=== PATIENT | female | born 1980 | race American Indian/Alaskan Native ===

== ENCOUNTER 2017-03-01 11:53 | Emergency (ER) | payer SELFPAY ==
[2017-03-01 11:54] VITALS: BMI 36.5
[2017-03-01 12:02] VITALS: BP 107/73; PULSE 62; RESP 17; TEMP 98.3; O2SAT 99
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
--- NOTE | 2017-03-01 16:49 | RAD ---
PROCEDURE: Right ankle dated 03/01/2017 HISTORY: pain and swelling s.p injury COMPARISON: None FINDINGS: BONES: There is a minimally displaced diagonal and questionably comminuted fracture traversing the distal fibula with moderate to fairly significant overlying soft tissue swelling . Ankle mortise maintained. No other fractures seen. JOINTS: Normal. No osteoarthritis. Ankle mortise maintained. Talar dome intact SOFT TISSUES: As above OTHER FINDINGS: None. IMPRESSION: Minimally displaced questionably comminuted fracture distal fibula with moderate to fairly significant overlying soft tissue swelling
== END 2017-03-01 13:19 | disposition home or self-care (01) ==
LOC: C.ER 11:53
DX: S82.891A Other fracture of right lower leg, initial encounter for closed fracture (principal); X50.0XXA Overexertion from strenuous movement or load, initial encounter; Y93.89 Activity, other specified; Y92.89 Other specified places as the place of occurrence of the external cause

== ENCOUNTER 2017-05-27 09:27 | Observation (INO) | payer SELFPAY ==
[2017-05-27 09:27] VITALS: BMI 36.5
--- NOTE | 2017-05-27 09:58 | C.PDOC ---
History Of Present Illness 37 year old female presents to the ED with complaints of worsening pain and swelling to right side of face for five days. Patient states she is missing a filling to top right first molar for three years. She has had intermittent pain , now pain is more severe than usual. Patient has not had a prior dental evaluation for the same complaints and notes no relief with over the counter pain medications. She denies fever or other associated symptoms WORSENING PAIN, SWELLING R FACE X 5 DAYS. PS MISSING FILLING TOP R 1ST MOLAR X 3 YEARS, HAS BEEN W INTERMIT PAIN. NOW MORE SEVERE THAN USUAL. NO FEVER. NO RELIEF W OTC PAIN RX. NO PRIOR DENTAL EVAL FOR SAME EXAM MILD DIST NONTOXIC HEENT +R UPPER AND LOWER FACIAL SWELL. +DENTALGIA R UPPER 1 MOLAR W MISSING FILLING SPACE. +LOCAL GUM SWELL NO ABSCESS. NO ERYTHEMA. NO DROOLING, SPEAKING FULL SENTENCES REMAINDER NEG Time Seen by Provider: 05/27/17 09:48 Chief Complaint (Nursing): Dental Pain History Per: Patient History/Exam Limitations: no limitations Onset/Duration Of Symptoms: Days (5 days ), Intermittent Episodes Current Symptoms Are (Timing): Still Present Quality: Positive for: "Pain" Recent travel outside of the [place]: No Past Medical History Reviewed: Historical Data, Nursing Documentation, Vital Signs Vital Signs: Last Vital Signs Temp 98.0 F 05/27/17 10:49 Pulse 88 05/27/17 10:49 Resp 18 05/27/17 10:49 BP 102/67 05/27/17 10:49 Pulse Ox 98 05/27/17 13:15 - Medical History PMH: Anemia, Anxiety, Depression, Post Traumatic Stress Disorder Surgical History: Cholecystectomy - [facility] Procedures [employer]IF RUPT [employer]ES NEC (03/20/13) MANUAL ASSIST DELIV NEC (03/20/13) MEDICAL INDUCTION LABOR (03/20/13) Family History: States: Unknown Family Hx - Social History Hx Alcohol Use: Yes Hx Substance Use: No - Immunization History Hx Tetanus Toxoid Vaccination: Yes Hx Influenza Vaccination: No Hx Pneumococcal Vaccination: No Review Of Systems Constitutional: Negative for: Fever, Chills ENT: Positive for: Other (pain and swelling to right side of face ) Cardiovascular: Negative for: Chest Pain, Palpitations Respiratory: Negative for: Cough, Shortness of Breath Gastrointestinal: Negative for: Nausea, Vomiting Physical Exam - Physical Exam Appears: Non-toxic, In Acute Distress (mild distress ) Skin: Warm, Dry Head: Other (right upper and lower facial swelling ) Eye(s): bilateral: Normal Inspection, PERRL, EOMI Ear(s): Bilateral: Normal Nose: Normal, No Discharge Oral Mucosa: Moist Tongue: Normal Appearing, No Swelling Lips: Normal Appearing, No Swelling Teeth: Other (dentalgia right upper, one molar with missing filling space ) Gingiva: Swelling (localized gum swelling with no abscess or erythema. ) Throat: Normal, No Erythema, No Exudate, No Drooling Chest: Symmetrical, No Deformity Cardiovascular: Rhythm Regular, No Murmur Respiratory: Normal Breath Sounds, No Rales, No Rhonchi, No Wheezing, Other ( Patient speaking in full sentences ) Neurological/Psych: Oriented x3, Normal Speech, Normal Cognition, Normal Motor, Normal Sensation ED Course And Treatment - Laboratory Results Result Diagrams: 05/27/17 10:24 05/27/17 11:04 O2 Sat by Pulse Oximetry: 98 (room air ) - CT Scan/US CT ORBITS WITH CONTRAST. Other Rad Studies (CT/US): Interpreted By Me, Read By Radiologist CT/US Interpretation: FINDINGS: RIGHT ORBIT: RIGHT BONY ORBIT: Normal. RIGHT INTRAORBITAL STRUCTURES: Globe: Normal. Extraocular muscles: Normal. Post septal space: Normal. Optic Nerve: Normal. Lacrimal Apparatus: Normal. RIGHT PRESEPTAL SOFT TISSUES: Mild right periorbital soft tissue swelling. LEFT ORBIT: LEFT BONY ORBIT: Normal. LEFT INTRAORBITAL STRUCTURES: Globe: Normal. Extraocular muscles: Normal. Post septal space: Normal. Optic Nerve: Normal. Lacrimal Apparatus: Normal. LEFT PRESEPTAL SOFT TISSUES: Normal. OTHER: There is enhancing wall fluid collection adjacent to the right maxilla suspicious for abscess formation measures 11.3 x 20.7 millimeter image 64 series 3. The adjacent tooth demonstrate periodontal lucency may represent periodontal abscess. Mild mucosal thickening seen at the right maxillary sinus. IMPRESSION: 2 x 1.7 centimeter abscess formation seen lateral to the right maxillary bone. Adjacent tooth surrounding with lucency also suspicious for abscess. Moderate right facial soft tissue swelling extending to the right periorbital region. Otherwise no acute pathology in the maxillofacial and orbits seen. Progress Note: Orbits/facial CT with contrast was ordered. Patient was given Toradol, morphine, cefTRIAXone IVPB, and IV fluids. Progress - Data Reviewed Data Reviewed: Lab, Diagnostic imaging, EKG, Old records ED OBSERVATION Discharge: Yes Date of observation admission: 05/27/17 Time of observation admission: 09:45 - Observation admission statement Patient is being placed in observation because:: FACIAL SWELL, DENTAL PAIN - Goals of Observation Goals of observation are:: RO ABSCESS - Progress Note Progress Note: 05/27/17 13:[address] RESULTS D/W PT, AGREES W TRANSFER D/W [facility], [place] [facility] [place] 13:28 D/W [place] [facility] [place] [facility] AWARE OF ER FINDINGS, STATES PT DOESNT REQUIRE ER TRANSFER AND CAN BE FU IN CLINIC. PT AGREES W DC PLAN Disposition Counseled Patient/Family Regarding: Studies Performed, Diagnosis, Need For Followup, Rx Given - Disposition Disposition: HOME/ ROUTINE Disposition Time: 13:28 Condition: IMPROVED - POA Present On Arrival: None - Clinical Impression Clinical Impression: Cellulitis and abscess of face - Scribe Statement The provider has reviewed the documentation as recorded by the Mauibnuha Lott All medical record entries made by the Pato were at my direction and personally dictated by me. I have reviewed the chart and agree that the record accurately reflects my personal performance of the history, physical exam, medical decision making, and the department course for this patient. I have also personally directed, reviewed, and agree with the discharge instructions and disposition.
[2017-05-27] MEDS ORDERED: cefTRIAXone IV 1 gm in Dextros 50 ML IV STA (10:00)
[2017-05-27] MEDS ORDERED: Sodium Chloride 0.9% 1,000 ML IV ONE (10:00)
[2017-05-27 10:20] LABS: VENOUS BLOOD GAS BASE EXCESS 0.6 mmol/L (0.0-2.0); VENOUS BLOOD GAS PCO2 47 mmHg (40-60); VENOUS BLOOD PH 7.36 (7.32-7.43)
[2017-05-27 10:30] LABS: BASO # 0.1 K/uL (0.0-0.2); BASO % 0.6 % (0.0-2.0); EOS # 0.1 K/uL (0.0-0.7); HEMATOCRIT 39.5 % (34.0-47.0); LYMPH # 1.1 K/uL (1.0-4.3); MEAN CELL VOLUME 94.5 fL (81.0-99.0); MEAN CORPUSCULAR HEMOGLOBIN 32.4 pg (27.0-31.0); MEAN CORPUSCULAR HGB CONC 34.3 g/dL (33.0-37.0); MEAN PLATELET VOLUME 8.6 fL (7.2-11.7); MONO # 0.7 K/uL (0.0-0.8); MONO % 7.9 % (0.0-10.0); NRBC % 0.1 % (0.0-2.0); RED CELL DISTRIBUTION WIDTH 13.3 % (11.5-14.5); WHITE BLOOD COUNT 8.7 K/uL (4.8-10.8)
[2017-05-27] MEDS ORDERED: Sodium Chloride 0.9% 1,000 ML ONE (10:31)
[2017-05-27] MEDS ORDERED: cefTRIAXone IV 1 gm in Dextros 50 ML IVPB ONE (10:35)
[2017-05-27 10:50] VITALS: RESP 18
[2017-05-27 11:19] LABS: BLOOD UREA NITROGEN 11 mg/dL (7-17); CARBON DIOXIDE 26 mmol/L (22-30); CHLORIDE 103 mmol/L (98-107); GFR AFRICAN-AMERICAN > 60; GLUCOSE,RANDOM 80 mg/dL (65-105); POTASSIUM 4.3 mmol/L (3.6-5.2); SODIUM 140 mmol/L (132-148)
[2017-05-27] MEDS ORDERED: Iodixanol 320 MG/ML 100 ML BOTTLE IV ONE (12:01)
[2017-05-27 12:44] VITALS: O2SAT 98
--- NOTE | 2017-05-27 13:06 | CT ---
PROCEDURE: CT ORBITS WITH CONTRAST. HISTORY: R FACIAL SWELL, 1 MOLAR PAIN RO ABSCESS COMPARISON: None available. TECHNIQUE: Following administration of intravenous iodinated contrast, axial CT images of the orbits were obtained. Coronal and sagittal reformats were generated. Intravenous contrast dose: 100 mL Visipaque 320 Radiation dose: Total exam DLP = 825.3 mGy-cm. This CT exam was performed using one or more of the following dose reduction techniques: Automated exposure control, adjustment of the mA and/or kV according to patient size, and/or use of iterative reconstruction technique. FINDINGS: RIGHT ORBIT: RIGHT BONY ORBIT: Normal. RIGHT INTRAORBITAL STRUCTURES: Globe: Normal. Extraocular muscles: Normal. Post septal space: Normal. Optic Nerve: Normal. Lacrimal Apparatus: Normal. RIGHT PRESEPTAL SOFT TISSUES: Mild right periorbital soft tissue swelling LEFT ORBIT: LEFT BONY ORBIT: Normal. LEFT INTRAORBITAL STRUCTURES: Globe: Normal. Extraocular muscles: Normal. Post septal space: Normal. Optic Nerve: Normal. Lacrimal Apparatus: Normal. LEFT PRESEPTAL SOFT TISSUES: Normal. OTHER: There is enhancing wall fluid collection adjacent to the right maxilla suspicious for abscess formation measures 11.3 x 20.7 millimeter image 64 series 3. The adjacent tooth demonstrate periodontal lucency may represent periodontal abscess. Mild mucosal thickening seen at the right maxillary sinus. IMPRESSION: 2 x 1.7 centimeter abscess formation seen lateral to the right maxillary bone. Adjacent tooth surrounding with lucency also suspicious for abscess. Moderate right facial soft tissue swelling extending to the right periorbital region. Otherwise no acute pathology in the maxillofacial and orbits seen.
[2017-05-27 13:29] VITALS: BP 104/71; PULSE 81; TEMP 97.9
== END 2017-05-27 13:29 | disposition home or self-care (01) ==
LOC: C.ER 09:27 → C.9OBSV 09:45
PROVIDERS: ADMIT Emergency Medicine; ATTEND Emergency Medicine
DX: L03.211 Cellulitis of face (principal); K08.89 Other specified disorders of teeth and supporting structures; F43.10 Post-traumatic stress disorder, unspecified; L02.01 Cutaneous abscess of face
CPT/HCPCS: 70481; 80048; 82803; 85025; 96361; 96365; 96375; 99284; G0378; J0696; J1885; J2270; J7040; Q9967